=== PATIENT | female | born 1970 ===

== ENCOUNTER 2019-09-10 11:24 | Emergency (ER) | payer OTHER ==
[2019-09-10 12:35] VITALS: BP 145/75
--- NOTE | 2019-09-10 13:40 | UC ---
FLU HPI - HPI Summary HPI Summary: SWABBED POSITIVE FOR THE FLU. PATIENT CONCERNED SHE ALSO HAS THE FLU. 4 DAYS OF COUGH, CONGESTION, FATIGUE, BODY ACHES, HEADACHE. NO FEVER. NO FLU SHOT YET THIS SEASON. - History of Current Complaint Chief Complaint: UCRespiratory Stated Complaint: COUGH Time Seen by Provider: 09/10/19 13:24 Hx Obtained From: Patient Hx Last Menstrual Period: a few weeks ago Onset/Duration: Gradual Onset, Lasting Days, Still Present Severity Currently: Moderate Severity Initially: Moderate Pain Intensity: 8 Pain Scale Used: 0-10 Numeric Associated Signs & Symptoms: Positive: Myalgia, Cough, Sore Throat, Nasal Congestion, Headache - Allergy/Home Medications Allergies/Adverse Reactions: Allergies Allergy/AdvReac Type Severity Reaction Status Date / Time No Known Allergies Allergy Verified 09/10/19 12:37 Home Medications: Home Medications Chlorphenir/Phenyleph/Aspirin [Cold Relief Plus Eff Tablet] 1 tab PO ONCE PRN [History Confirmed 09/10/19] PMH/Surg Hx/FS Hx/Imm Hx Previously Healthy: Yes - Surgical History Surgical History: None - Family History Known Family History: Positive: Cardiac Disease, Hypertension, Diabetes - father , Other - no known blood disorders, renal disease. - Social History Alcohol Use: None Substance Use Type: None Smoking Status (MU): Never Smoked Tobacco Review of Systems All Other Systems Reviewed And Are Negative: Yes Constitutional: Positive: Fatigue ENT: Positive: Sore Throat, Ear Ache, Nasal Discharge, Sinus Congestion Respiratory: Positive: Cough Cardiovascular: Positive: Negative Gastrointestinal: Positive: Negative Musculoskeletal: Positive: Myalgia Neurological: Positive: Headache Physical Exam Triage Information Reviewed: Yes Appearance: Well-Appearing, No Pain Distress, Well-Nourished Vital Signs: Initial Vital Signs Temp 98.6 F 09/10/19 12:32 Pulse 85 09/10/19 12:32 Resp 18 09/10/19 12:32 BP 145/75 09/10/19 12:32 Pulse Ox 97 09/10/19 12:32 Vital Signs Reviewed: Yes Eyes: Positive: Conjunctiva Clear ENT: Positive: Hearing grossly normal, Pharynx normal, TMs normal Neck: Positive: Supple, Nontender, No Lymphadenopathy Respiratory Exam: Normal Cardiovascular Exam: Normal Abdomen Description: Positive: Soft Musculoskeletal: Positive: No Edema Neurological: Positive: Alert Psychological: Positive: Age Appropriate Behavior Skin: Negative: Rashes Flu Course/Dx - Course Course Of Treatment: GIVEN PATIENT'S CLOSE HOUSEHOLD CONTACT WITH POSITIVE FLU SHE LIKELY ALSO HAS CONTRACTED THIS ILLNESS. GIVEN THAT SHE HAS HAD SYMPTOMS FOR 4 DAYS SHE IS OUTSIDE THE WINDOW OF UTILITY FOR TAMIFLU. DESPITE COUNSELING ABOUT THIS BY ME PATIENT IS REQUESTING TAMIFLU. FOLLOW UP IF NOT IMPROVING EXPECTED. - Differential Dx/Diagnosis Provider Diagnosis: Influenza-like illness Discharge ED - Sign-Out/Discharge Documenting (check all that apply): Patient Departure All imaging exams completed and their final reports reviewed: No Studies - Discharge Plan Condition: Stable Disposition: HOME Prescriptions: Oseltamivir CAP* [Tamiflu CAP*] 75 mg PO BID #10 cap Patient Education Materials: Influenza (ED), Viral Syndrome (ED) Forms: *Work Release Referrals: Marques JONES,Ajit Rivera [Primary Care Provider] - If Needed Additional Instructions: GIVEN YOUR CLOSE HOUSEHOLD EXPOSURE YOUR PRESENTATION IS CONSISTENT WITH THE FLU. TAMIFLU TWICE DAILY FOR 5 DAYS. OTC MEDS NEEDED FOR FEVER, BODY ACHES. STAY WELL HYDRATED AND RESTED. SEEK FOLLOW-UP IF YOU ARE NOT IMPROVING EXPECTED. BE AWARE THAT TAMIFLU IS NOT MUCH USE AFTER 2 DAYS OF SYMPTOMS. - Billing Disposition and Condition Condition: STABLE Disposition: Home
== END 2019-09-10 13:41 | disposition home or self-care (01) ==
LOC: UCEAST 11:24
DX: R05 Cough (principal); R09.81 Nasal congestion; R53.83 Other fatigue; M79.10 Myalgia, unspecified site; J02.9 Acute pharyngitis, unspecified; H92.09 Otalgia, unspecified ear; R09.89 Other specified symptoms and signs involving the circulatory and respiratory systems; R51 Headache
CPT/HCPCS: 99212; G0463